=== PATIENT | male | born 1960 | race Hispanic/Latino ===

== ENCOUNTER 2018-02-22 09:52 | Emergency (ER) | payer OTHER, MEDICARE ==
[~2018-02-22 09:52] MED LIST: ASPI-1005 PO; ATOR20TA65 PO; CLOP75TA14 PO; ESOM40CA54 PO; LANS1COM10 PO; LISI10TA7 PO; METO50TA18 PO; OMEG1CAP43 PO
[2018-02-22] MEDS ORDERED: OXYMETAZOLINE HCL SPRAY 15 ML BOTTLE ONE (10:23)
== END 2018-02-22 11:09 | disposition home or self-care (01) ==
LOC: EDH 09:52
DX: R04.0 Epistaxis (principal); I10 Essential (primary) hypertension; I25.2 Old myocardial infarction; Z88.6 Allergy status to analgesic agent
CPT/HCPCS: 30901

== ENCOUNTER → 2018-06-14 | Outpatient (CLI) | payer OTHER, MEDICARE | END | disposition home or self-care (01) | LOC: SHCH 09:59 | PROVIDERS: ATTEND Internal Medicine Cardiovascular Disease | DX: I73.9 Peripheral vascular disease, unspecified (principal) | CPT/HCPCS: 93925 ==

== ENCOUNTER 2019-02-18 12:04 | Emergency (ER) | payer OTHER, MEDICARE ==
[2019-02-18 12:34] LABS: BASOPHILS % (AUTO) 0.8 % (0.0-5.0); HEMATOCRIT 41.9 % (42-54); LYMPHOCYTES % (AUTO) 25.8 % (21.0-51.0); MEAN CORPUSCULAR HEMOGLOBIN 29.9 pg (27.0-33.0); MEAN CORPUSCULAR HGB CONC 33.6 g/dL (32.0-36.0); MEAN CORPUSCULAR VOLUME 89.1 fL (79-99); MONOCYTES % (AUTO) 5.3 % (3.0-13.0); NEUTROPHILS % (AUTO) 64.1 % (40.0-77.0); NUCLEATED RED BLOOD CELLS 0.1 % (0.0-0.19); PLATELET COUNT (AUTO) 187 K/uL (130-400); RED CELL DISTRIBUTION WIDTH 12.7 % (11.0-15.5); WHITE BLOOD COUNT (AUTO) 6.8 K/uL (4.8-10.8)
[2019-02-18] MEDS ORDERED: ASPIRIN 325 MG TABLET ONE (12:40)
[2019-02-18 12:45] LABS: INR 1.02 (0.85-1.15); PARTIAL THROMBOPLASTIN TIME 25.2 SEC (26.3-35.5); PROTHROMBIN TIME 10.7 SEC (9.6-11.6)
[2019-02-18 13:13] LABS: ALBUMIN 3.8 g/dL (3.5-5.0); BILIRUBIN,TOTAL 0.4 mg/dL (0.2-1.0); CREATININE 0.8 mg/dL (0.5-1.5); POTASSIUM 4.5 mmol/L (3.5-5.1); TOTAL PROTEIN, SERUM 8.2 g/dL (6.0-8.3)
[2019-02-18] MEDS ORDERED: NITROGLYCERIN 1GM/1 INCH PACKET TD ONE (13:22)
== END 2019-02-18 16:26 | disposition home or self-care (01) ==
LOC: EDH 12:04
DX: R07.89 Other chest pain (principal); I10 Essential (primary) hypertension; I21.9 Acute myocardial infarction, unspecified; Z87.891 Personal history of nicotine dependence; Z88.8 Allergy status to other drugs, medicaments and biological substances
CPT/HCPCS: 36415; 71045; 80053; 82550; 84484; 85025; 85610; 85730; 93005

== ENCOUNTER → 2019-11-08 | Outpatient (CLI) | payer OTHER, MEDICARE | END | disposition home or self-care (01) | LOC: SHCH 14:31 | PROVIDERS: ATTEND Internal Medicine Cardiovascular Disease | DX: I65.22 Occlusion and stenosis of left carotid artery (principal) | CPT/HCPCS: 93880 ==

== ENCOUNTER 2021-04-18 12:42 | Emergency (ER) | payer OTHER, MEDICARE ==
[~2021-04-18] VITALS: Ht 167.6 cm; Wt 67.6 kg
[~2021-04-18 12:42] MED LIST changes: +LISI10TA24 PO; -LISI10TA7 PO
[2021-04-18 14:30] LABS: BASOPHILS % (AUTO) 0.4 % (0.0-5.0); EOSINOPHILS % (AUTO) 1.2 % (0.0-8.0); HEMATOCRIT 38.3 % (42-54); LYMPHOCYTES % (AUTO) 11.3 % (21.0-51.0); MEAN CORPUSCULAR HEMOGLOBIN 28.3 pg (27.0-33.0); MEAN CORPUSCULAR HGB CONC 31.6 g/dL (32.0-36.0); MEAN CORPUSCULAR VOLUME 89.5 fL (79-99); MONOCYTES % (AUTO) 6.2 % (3.0-13.0); NEUTROPHILS % (AUTO) 78.6 % (40.0-77.0); RED BLOOD CELL COUNT(AUTO) 4.28 MIL/uL (4.50-6.20); RED CELL DISTRIBUTION WIDTH 12.8 % (11.0-15.5); WHITE BLOOD COUNT (AUTO) 13.5 K/uL (4.8-10.8)
[2021-04-18 14:44] LABS: INR 1.13 (0.85-1.15); PROTHROMBIN TIME 12.2 SEC (9.6-11.6)
[2021-04-18 14:45] LABS: CREATININE 0.8 mg/dL (0.5-1.5); POTASSIUM 3.1 mmol/L (3.5-5.1)
[2021-04-18 14:46] LABS: PARTIAL THROMBOPLASTIN TIME 28.6 SEC (26.3-35.5)
[2021-04-18] MEDS ORDERED: MORPHINE 4 MG SYG IV ONE (14:47)
[2021-04-18 14:48] LABS: PLATELET COUNT (AUTO) 746 K/uL (130-400)
[2021-04-18 14:50] LABS: ALBUMIN 2.5 g/dL (3.5-5.0); BILIRUBIN,TOTAL 0.8 mg/dL (0.2-1.0); TOTAL PROTEIN, SERUM 8.1 g/dL (6.0-8.3)
[2021-04-18] MEDS ORDERED: IOHEXOL-350 75 ML VIAL IV ONE (16:02)
[2021-04-18] MEDS ORDERED: LIDOCAINE HCL 400MG/20ML VIAL ONE (16:38)
[2021-04-18] MEDS ORDERED: CLINDAMYCIN IVPB 900MG/50ML 50 ML IV SCH (17:00)
[2021-04-18] MEDS ORDERED: KETOROLAC 30MG VIAL (30MG/ML) IV SCH (17:00)
[2021-04-18] MEDS ORDERED: MORPHINE 4 MG SYG ONE (17:09)
[2021-04-18] MEDS ORDERED: CLIN-141 PO (17:20)
[2021-04-18] MEDS ORDERED: ACET1TAB25 PO (17:20)
[2021-04-18] MEDS ORDERED: IBUP-2070 PO (17:20)
[2021-04-18 17:30] VITALS: BP 138/68
[2021-04-18] MEDS ORDERED: LIDOCAINE HCL 1% 20 ML VIAL INJ SCH (17:40)
== END 2021-04-18 18:01 | disposition home or self-care (01) ==
LOC: EDH 12:42
DX: L02.31 Cutaneous abscess of buttock (principal); I10 Essential (primary) hypertension; Z79.1 Long term (current) use of non-steroidal anti-inflammatories (NSAID); Z79.82 Long term (current) use of aspirin; Z79.899 Other long term (current) drug therapy; Z90.49 Acquired absence of other specified parts of digestive tract
CPT/HCPCS: 10061; 36415; 72193; 80053; 83605; 85025; 85610; 85730; 87040 ×2; 87070; 87076; 96365; 96375; 99285; J1885; J2270; J3490 ×2; Q9967

== ENCOUNTER 2021-04-19 17:56 | Emergency (ER) | payer OTHER, MEDICARE ==
[~2021-04-19 17:56] MED LIST changes: +ACET1TAB25 PO; +CLIN-141 PO; +IBUP-2070 PO
== END 2021-04-19 18:25 | disposition left against medical advice (07) ==
LOC: EDH 17:56
DX: Z48.00 Encounter for change or removal of nonsurgical wound dressing (principal); Z53.21 Procedure and treatment not carried out due to patient leaving prior to being seen by health care provider

== ENCOUNTER → 2021-06-02 | Outpatient (CLI) | payer OTHER, MEDICARE ==
[2021-06-02 09:15] LABS: BASOPHILS % (AUTO) 1.9 % (0.0-5.0); EOSINOPHILS % (AUTO) 7.1 % (0.0-8.0); HEMATOCRIT 43.6 % (42-54); LYMPHOCYTES % (AUTO) 26.6 % (21.0-51.0); MEAN CORPUSCULAR HEMOGLOBIN 29.1 pg (27.0-33.0); MEAN CORPUSCULAR HGB CONC 32.3 g/dL (32.0-36.0); MEAN CORPUSCULAR VOLUME 89.9 fL (79-99); MONOCYTES % (AUTO) 7.1 % (3.0-13.0); NEUTROPHILS % (AUTO) 55.5 % (40.0-77.0); PLATELET COUNT (AUTO) 290 K/uL (130-400); RED BLOOD CELL COUNT(AUTO) 4.85 MIL/uL (4.50-6.20); RED CELL DISTRIBUTION WIDTH 13.2 % (11.0-15.5); WHITE BLOOD COUNT (AUTO) 7.9 K/uL (4.8-10.8)
[2021-06-02 09:35] LABS: ALBUMIN 3.7 g/dL (3.5-5.0); BILIRUBIN,TOTAL 0.5 mg/dL (0.2-1.0); CREATININE 0.6 mg/dL (0.5-1.5); INR 1.03 (0.85-1.15); POTASSIUM 4.1 mmol/L (3.5-5.1); PROTHROMBIN TIME 11.2 SEC (9.6-11.6); TOTAL PROTEIN, SERUM 8.5 g/dL (6.0-8.3)
[2021-06-02 18:49] LABS: HEPATITIS B SURFACE ANTIGEN Non-Reactive (Negative)
[2021-06-02 21:47] LABS: HEPATITIS C ANTIBODY Non-Reactive (NEGATIVE)
[2021-06-03 08:18] LABS: HEPATITIS A ANTIBODY IGM Negative (Negative)
[2021-06-04 03:09] LABS: ALPHA-1-ANTITRYPSIN 149 mg/dL (101-187)
== END | disposition home or self-care (01) ==
LOC: RAH 08:00
PROVIDERS: ATTEND Internal Medicine Gastroenterology
DX: K76.89 Other specified diseases of liver (principal); I70.0 Atherosclerosis of aorta; R94.5 Abnormal results of liver function studies; R93.2 Abnormal findings on diagnostic imaging of liver and biliary tract
CPT/HCPCS: 36415; 76700; 80053; 82103; 82105; 82390; 82784; 83516; 83540; 85025; 85610; 86038; 86215; 86235; 86255; 86706; 86709; 86717; 87340; 87520

== ENCOUNTER 2022-01-09 10:21 | Emergency (ER) | payer OTHER, MEDICARE ==
[~2022-01-09] VITALS: Ht 165.1 cm; Wt 70.8 kg
[~2022-01-09 10:21] MED LIST changes: +ACET-2079 PO; -ACET1TAB25 PO
[2022-01-09 11:17] LABS: EOSINOPHILS % (AUTO) 4.7 % (0.0-8.0); HEMATOCRIT 43.5 % (42-54); LYMPHOCYTES % (AUTO) 24.9 % (21.0-51.0); MEAN CORPUSCULAR HEMOGLOBIN 29.6 pg (27.0-33.0); MEAN CORPUSCULAR HGB CONC 33.8 g/dL (32.0-36.0); MEAN CORPUSCULAR VOLUME 87.7 fL (79-99); MONOCYTES % (AUTO) 5.9 % (3.0-13.0); NEUTROPHILS % (AUTO) 60.7 % (40.0-77.0); PLATELET COUNT (AUTO) 288 K/uL (130-400); RED BLOOD CELL COUNT(AUTO) 4.96 MIL/uL (4.50-6.20); RED CELL DISTRIBUTION WIDTH 11.9 % (11.0-15.5); WHITE BLOOD COUNT (AUTO) 7.1 K/uL (4.8-10.8)
[2022-01-09 11:28] LABS: CREATININE 0.8 mg/dL (0.5-1.5); POTASSIUM 4.1 mmol/L (3.5-5.1)
[2022-01-09 11:32] LABS: ALBUMIN 3.7 g/dL (3.5-5.0); TOTAL PROTEIN, SERUM 8.2 g/dL (6.0-8.3)
[2022-01-09 12:36] LABS: ERYTHROCYTE SEDIMENTATION RATE 18 MM/HR (0-20)
[2022-01-09] MEDS ORDERED: IBUP-1493 PO (13:20)
[2022-01-09 13:32] VITALS: BP 104/57
== END 2022-01-09 13:33 | disposition home or self-care (01) ==
LOC: EDH 10:21
DX: M79.10 Myalgia, unspecified site (principal); M79.651 Pain in right thigh; M79.652 Pain in left thigh; E78.00 Pure hypercholesterolemia, unspecified; I10 Essential (primary) hypertension; I25.2 Old myocardial infarction; Z90.89 Acquired absence of other organs; Z79.82 Long term (current) use of aspirin; Z79.899 Other long term (current) drug therapy; Z88.6 Allergy status to analgesic agent; Z88.5 Allergy status to narcotic agent
CPT/HCPCS: 36415; 80053; 82550; 85025; 85651

== ENCOUNTER → 2022-02-24 | Outpatient (CLI) | payer OTHER, MEDICARE ==
[~2022-02-24] MED LIST changes: +CLOP-31 PO; -CLOP75TA14 PO; +FISH1CAP17 PO; +IBUP-1493 PO; -OMEG1CAP43 PO
== END | disposition home or self-care (01) ==
LOC: RAH 13:34
PROVIDERS: ATTEND Internal Medicine Cardiovascular Disease
DX: I65.23 Occlusion and stenosis of bilateral carotid arteries (principal); I77.9 Disorder of arteries and arterioles, unspecified
CPT/HCPCS: 93880

== ENCOUNTER → 2022-08-01 | Outpatient (CLI) | payer OTHER, MEDICARE ==
[2022-08-01 11:57] LABS: BASOPHILS % (AUTO) 1.3 % (0.0-5.0); EOSINOPHILS % (AUTO) 4.5 % (0.0-8.0); HEMATOCRIT 44.2 % (42-54); LYMPHOCYTES % (AUTO) 23.6 % (21.0-51.0); MEAN CORPUSCULAR HEMOGLOBIN 29.4 pg (27.0-33.0); MEAN CORPUSCULAR VOLUME 89.1 fL (79-99); MONOCYTES % (AUTO) 8.2 % (3.0-13.0); NEUTROPHILS % (AUTO) 59.7 % (40.0-77.0); PLATELET COUNT (AUTO) 263 K/uL (130-400); RED BLOOD CELL COUNT(AUTO) 4.96 MIL/uL (4.50-6.20); WHITE BLOOD COUNT (AUTO) 8.4 K/uL (4.8-10.8)
[2022-08-01 12:23] LABS: HEMOGLOBIN A1C 5.7 % (4.0-6.0)
[2022-08-01 12:25] LABS: ALBUMIN 3.7 g/dL (3.5-5.0); CREATININE 0.8 mg/dL (0.5-1.5); POTASSIUM 4.3 mmol/L (3.5-5.1); T4 (THYROXINE) 6.7 ug/dL (4.7-13.3); THYROID STIMULATING HORMONE 4.84 uIU/mL (0.36-3.74)
== END | disposition home or self-care (01) ==
LOC: LAB 08:50
PROVIDERS: ATTEND Internal Medicine Cardiovascular Disease
DX: I25.119 Atherosclerotic heart disease of native coronary artery with unspecified angina pectoris (principal); I10 Essential (primary) hypertension; E78.5 Hyperlipidemia, unspecified; Z79.899 Other long term (current) drug therapy
CPT/HCPCS: 36415; 80053; 80061; 83036; 84436; 84443; 85025

== ENCOUNTER → 2022-09-02 | Outpatient (CLI) | payer OTHER, MEDICARE | END | disposition home or self-care (01) | LOC: SHCH 13:55 | PROVIDERS: ATTEND Internal Medicine Cardiovascular Disease | DX: I70.213 Atherosclerosis of native arteries of extremities with intermittent claudication, bilateral legs (principal); M62.81 Muscle weakness (generalized) | CPT/HCPCS: 93925 ==

== ENCOUNTER → 2022-09-26 | Outpatient (CLI) | payer OTHER, MEDICARE ==
[2022-09-26 12:25] LABS: CREATININE 0.8 mg/dL (0.5-1.5)
== END | disposition home or self-care (01) ==
LOC: LAB 08:53
PROVIDERS: ATTEND Internal Medicine Cardiovascular Disease
DX: I73.9 Peripheral vascular disease, unspecified (principal); Z95.5 Presence of coronary angioplasty implant and graft
CPT/HCPCS: 36415; 82565; 84520

== ENCOUNTER → 2022-10-04 | Outpatient (CLI) | payer OTHER, MEDICARE ==
[~2022-10-04] MED LIST changes: +IOHEXOL-350 50ML VIAL IV ONE; +IOHEXOL-350 75 ML VIAL IV ONE
== END | disposition home or self-care (01) ==
LOC: RAH 08:37 → EDSTATUS 11:00
PROVIDERS: ATTEND Internal Medicine Cardiovascular Disease
DX: I73.9 Peripheral vascular disease, unspecified (principal); N28.1 Cyst of kidney, acquired
CPT/HCPCS: 75635; Q9967 ×2

== ENCOUNTER → 2022-12-05 | Outpatient (CLI) | payer OTHER, MEDICARE ==
[~2022-12-05] MED LIST changes: -IOHEXOL-350 50ML VIAL IV ONE; -IOHEXOL-350 75 ML VIAL IV ONE
== END | disposition home or self-care (01) ==
LOC: SHCH 09:53
PROVIDERS: ATTEND Internal Medicine Cardiovascular Disease
DX: I87.2 Venous insufficiency (chronic) (peripheral) (principal); I87.1 Compression of vein
CPT/HCPCS: 93970

== ENCOUNTER → 2023-05-19 | Outpatient (CLI) | payer OTHER, MEDICARE | END | disposition home or self-care (01) | LOC: RAH 08:15 | PROVIDERS: ATTEND Family Medicine | DX: N28.1 Cyst of kidney, acquired (principal); R10.9 Unspecified abdominal pain | CPT/HCPCS: 76700 ==

== ENCOUNTER → 2023-05-30 | Outpatient (CLI) | payer OTHER, MEDICARE ==
[2023-05-30 12:11] LABS: BASOPHILS # (AUTO) 0.12 K/uL (0.00-0.20); BASOPHILS % (AUTO) 1.4 % (0.0-5.0); EOSINOPHILS # (AUTO) 0.32 K/uL (0.00-0.70); EOSINOPHILS % (AUTO) 3.7 % (0.0-8.0); HEMATOCRIT 44.2 % (42-54); LYMPHOCYTES # (AUTO) 1.8 K/uL (1.0-4.8); LYMPHOCYTES % (AUTO) 20.7 % (21.0-51.0); MEAN CORPUSCULAR HGB CONC 32.6 g/dL (32.0-36.0); MEAN CORPUSCULAR VOLUME 88.9 fL (79-99); MONOCYTES # (AUTO) 0.6 K/uL (0.1-1.0); MONOCYTES % (AUTO) 7.1 % (3.0-13.0); NEUTROPHILS # (AUTO) 5.7 K/uL (1.8-7.7); NEUTROPHILS % (AUTO) 65.9 % (40.0-77.0); PLATELET COUNT (AUTO) 277 K/uL (130-400); RED BLOOD CELL COUNT(AUTO) 4.97 MIL/uL (4.50-6.20); RED CELL DISTRIBUTION WIDTH 12.8 % (11.0-15.5); WHITE BLOOD COUNT (AUTO) 8.6 K/uL (4.8-10.8)
[2023-05-30 12:12] LABS: CREATININE 0.8 mg/dL (0.5-1.5); POTASSIUM 4.5 mmol/L (3.5-5.1)
[2023-05-30 12:16] LABS: INR 0.94 (0.85-1.15); PROTHROMBIN TIME 10.9 SEC (9.6-11.6)
[2023-05-30 12:18] LABS: PARTIAL THROMBOPLASTIN TIME 34.8 SEC (26.3-35.5)
== END | disposition home or self-care (01) ==
LOC: LAB 08:36
PROVIDERS: ATTEND Internal Medicine Cardiovascular Disease
DX: Z01.812 Encounter for preprocedural laboratory examination (principal); I87.1 Compression of vein; I10 Essential (primary) hypertension; I87.2 Venous insufficiency (chronic) (peripheral); I73.9 Peripheral vascular disease, unspecified; I25.10 Atherosclerotic heart disease of native coronary artery without angina pectoris; I77.9 Disorder of arteries and arterioles, unspecified; E78.5 Hyperlipidemia, unspecified; Z95.5 Presence of coronary angioplasty implant and graft; M25.561 Pain in right knee; R20.0 Anesthesia of skin; Z79.899 Other long term (current) drug therapy; J44.9 Chronic obstructive pulmonary disease, unspecified; Z82.49 Family history of ischemic heart disease and other diseases of the circulatory system; M25.562 Pain in left knee; Z79.82 Long term (current) use of aspirin; Z79.01 Long term (current) use of anticoagulants
CPT/HCPCS: 36415; 80048; 85025; 85610; 85730

== ENCOUNTER 2024-05-28 05:43 | Day surgery (SDC) | payer OTHER, MEDICARE ==
[2024-05-23 09:53] LABS: APPEARANCE,URINE CLEAR (CLEAR); BILIRUBIN,URINE NEGATIVE (NEGATIVE); COLOR,URINE LIGHT-YELLOW (YELLOW); GLUCOSE, URINE (UA) NEGATIVE (NEGATIVE); KETONES,URINE NEGATIVE (NEGATIVE); LEUKOCYTE ESTERASE ,URINE NEGATIVE Leu/uL (NEGATIVE); NITRATE,URINE NEGATIVE (NEGATIVE); OCCULT BLOOD,URINE SMALL (NEGATIVE); PH,URINE 5.5 (5.0-8.0); PROTEIN,URINE 20 mg/dL (NEGATIVE); UROBILINOGEN,URINE 0.2 mg/dL (0.2-1.0)
[2024-05-23 09:55] LABS: ADD UA MICROSCOPIC YES
[2024-05-23 09:56] VITALS: BP 150/62; PULSE 72; RESP 18; TEMP 97.3
[2024-05-23 09:56] LABS: MUCUS,URINE RARE LPF (None Seen); WBC,URINE 0-1 /HPF (0-1)
[2024-05-23 10:14] LABS: BASOPHILS # (AUTO) 0.13 K/uL (0.00-0.20); BASOPHILS % (AUTO) 1.3 % (0.0-5.0); EOSINOPHILS # (AUTO) 0.32 K/uL (0.00-0.70); EOSINOPHILS % (AUTO) 3.3 % (0.0-8.0); HEMATOCRIT 43.4 % (42-54); IMMATURE GRANULOCYTE ABSOLUTE 0.18 K/uL (0-1); LYMPHOCYTES # (AUTO) 1.8 K/uL (1.0-4.8); MEAN CORPUSCULAR HEMOGLOBIN 28.6 pg (27.0-33.0); MEAN CORPUSCULAR HGB CONC 32.3 g/dL (32.0-36.0); MEAN CORPUSCULAR VOLUME 88.6 fL (79-99); MONOCYTES # (AUTO) 0.6 K/uL (0.1-1.0); MONOCYTES % (AUTO) 6.3 % (3.0-13.0); NEUTROPHILS # (AUTO) 6.6 K/uL (1.8-7.7); NEUTROPHILS % (AUTO) 68.2 % (40.0-77.0); PLATELET COUNT (AUTO) 265 K/uL (130-400); RED CELL DISTRIBUTION WIDTH 12.2 % (11.0-15.5); WHITE BLOOD COUNT (AUTO) 9.7 K/uL (4.8-10.8)
[2024-05-23 10:17] LABS: CREATININE 0.9 mg/dL (0.5-1.3); POTASSIUM 4.3 mmol/L (3.5-5.1)
[2024-05-23 10:22] LABS: INR 1.08 (0.85-1.15); PROTHROMBIN TIME 11.4 SEC (9.6-11.6)
[2024-05-23 10:23] LABS: PARTIAL THROMBOPLASTIN TIME 35.6 SEC (26.3-35.5)
[2024-05-23 10:39] LABS: B-TYPE NATRIURETIC PEPTIDE 13 pg/mL (0-100)
--- NOTE | 2024-05-23 16:19 | HMCIMG ---
CHEST 1VW HISTORY: Preop COMPARISON: 01/17/2024 FINDINGS: A frontal projection of the chest was obtained. No acute pulmonary infiltrates is seen. The heart is borderline enlarged. Prominent interstitial markings are seen. There is grade 2 right acromioclavicular joint separation. Aortic calcifications are seen. IMPRESSION: 1. No acute pulmonary infiltrate is seen.
--- NOTE | 2024-05-24 09:33 | EKG ---
[facility] Test Date: 2024-05-23 Test Time: 10:42:59 Pat Name: DIANDRA SOLER Department: [facility] Room: Gender: M Director Work: [id number] : 1960 Requested By: CHRIS GILBERT Order Number: [id number] Reading MD: Vidal Reyes Measurements Intervals [place] Rate: 66 P: 47 CT: 177 QRS: 63 QRSD: 98 T: 29 QT: 404 QTc: 424 Interpretive Statements Sinus rhythm Inferior infarct, old Compared to ECG 01/17/2024 12:16:54 No significant changes Electronically Signed On 05-24-2024 14:47:18 MIXER OPERATOR by Vidal Reyes Please click the below link to view image of tracing.
[~2024-05-28] VITALS: Ht 167.6 cm; Wt 74.9 kg
[2024-05-28] VITALS (10 sets, daily range): BP systolic 125–153; BP diastolic 68–86; PULSE 70–94; RESP 11–22; TEMP 97.2–98.2
[~2024-05-28 05:43] MED LIST changes: -ACET-2079 PO; -ATOR20TA65 PO; +ATOR40TA69 PO; +CALC-1294 PO; -CLIN-141 PO; -ESOM40CA54 PO; +EZET10TA48 PO; +HYDR-4068 PO; -IBUP-1493 PO; -IBUP-2070 PO; -LANS1COM10 PO; +LEVO50CA4 PO; +METO-391 PO; -METO50TA18 PO; +PANT40TA54 PO
[2024-05-28] MEDS: 0.9%NACL 1000ML 1,000 ML IV SCH (06:41)
[2024-05-28] MEDS ORDERED: LIDOCAINE HCL 400MG/20ML VIAL ONE (07:15)
[2024-05-28] MEDS ORDERED: BIVALIRUDIN 250 MG/VIAL IV ONE (07:16)
[2024-05-28] MEDS ORDERED: HEParin 10,000 UNIT/10ML (1,000 UNIT/ML) VIAL ONE (07:16)
[2024-05-28] MEDS ORDERED: IOHEXOL 350 MG/ML 100ML INFUS..BTL IV ONE (07:16)
[2024-05-28] MEDS ORDERED: IOHEXOL-350 50ML VIAL IV ONE (07:16)
[2024-05-28] MEDS ORDERED: HEParin-NS 1,000 UNIT/500 ML 1,000 ML IV ONE (07:16)
[2024-05-28] MEDS ORDERED: NITROGLYCERIN 50MG VIAL ONE (07:17)
[2024-05-28] MEDS ORDERED: MIDAZOLAM HCL 1 MG/ML 2ML VIAL ONE (07:33)
[2024-05-28] MEDS ORDERED: FENTanyl CITRate PF 50 MCG/1 ML 2ML VIAL ONE (07:33)
[2024-05-28] MEDS ORDERED: LAbetaLOL 20MG VIAL ONE (07:57)
[2024-05-28] MEDS ORDERED: ATROPINE 1MG SYG IVP ONE (08:20)
--- NOTE | 2024-05-28 09:27 | PRN ---
DATE OF PROCEDURE: 05/28/2024 PROCEDURE PERFORMED: LEFT HEART CATHETERIZATION, LEFT VENTRICULOGRAM, LEFT AND RIGHT SELECTIVE CORONARY ANGIOGRAM, LEFT INTERNAL MAMMARY ARTERY INJECTION, RIGHT COMMON FEMORAL ANGIOGRAM, PERCLOSE SUTURE CLOSURE OF THE RIGHT COMMON FEMORAL ARTERY, AND CONSCIOUS SEDATION DRILL PRESS OPERATOR HELPER: Jairo Gilbert MD, [facility] INDICATION: Medically refractory angina pectoris, known three-vessel coronary artery disease PROCEDURE NOTE: After informed consent was obtained the patient was prepped and draped in the usual sterile fashion. A 6 [place] arterial sheath was inserted in the right femoral artery using a micropuncture technique with ultrasound guidance with a front wall 1st pass puncture. This was performed after fluoroscopic identification of bony landmarks to facilitate a more accurate puncture of the right common femoral artery. The arterial sheath was aspirated and flushed. A 6 [place] pigtail catheter was then advanced over a J-tipped guidewire to the ascending aorta and was prolapsed into the left ventricle. The catheter was aspirated and flushed and pressure measurements were obtained. A left ventriculogram was then performed in a 30 HOBBS projection. A pullback procedure was then performed, and this catheter was removed over a J-tipped guidewire. A 6F JL-4 was then advanced to the ascending aorta over a J-tipped guidewire, was aspirated and flushed, and was used for selective left coronary angiograms in multiple obliquities. A JR-4 was advanced in a similar fashion to the ascending aorta over a J-tipped guidewire and was used for selective right coronary angiograms in multiple obliquities with findings as outlined below. The six [place] JR4 was then used for selective injection of the left internal mammary artery to assess suitability for use as a bypass conduit. A right common femoral angiogram was performed to assess suitability for Perclose suture closure and the Perclose device was deployed in standard fashion. Perclose suture closure was successful without bleeding or hematoma. The patient tolerated the procedure well and was returned to the holding area in stable condition. FINDINGS: LEFT HEART HEMODYNAMICS: Patient's LVEDP prior to nitroglycerin was 31 mm of mercury, after intraventricular nitroglycerin this improved to 21 mm of mercury. There was no aortic valve gradient on pullback procedure. LEFT VENTRICULOGRAM: A left ventriculogram in a 30 degree HOBBS projection demonstrated mild mid inferior hypokinesis with an LVEF of 60%. There was no angiographic MR. CORONARY ANGIOGRAM: LEFT MAIN: The left main had a 40% ostial stenosis and a 30% tubular distal stenosis. There was no dampening or ventricularization with a six [place] catheter. LEFT ANTERIOR DESCENDING: The left anterior descending was calcified proximally with a 50% tubular stenosis in the prox LAD, 90% mid LAD stenosis, and the mid to distal LAD was small, estimated at 1.5 mm. This was due to the fact that the diagonal two was a larger vessel than the apical LAD. The diagonal one had a 70% ostial stenosis in the diagonal two also a 70% ostial stenosis. LEFT CIRCUMFLEX: The left circumflex was nondominant and had a remote stent in the proximal to mid segment traversing the 1st obtuse marginal. There was a 90% distal edge restenosis just prior to a small OM2 vessel. The distal circumflex had a tubular 60% stenosis and terminated as a large OM3 vessel. The OM1 had a 90% stenosis and was jailed by the remote stent from 11/11/2009. RAMUS INTERMEDIATE BRANCH: There was no ramus intermediate branch. RIGHT CORONARY ARTERY: The right coronary artery was dominant and had an 80% proximal stenosis, two tandem 50% mid stenoses, and two tandem 75% proximal PDA stenoses. The acute marginal branch also had an 80% ostial stenosis. IMPRESSION: Normal LV systolic function with mild mid inferior hypokinesis and an LVEF of 60%. Widely patent right iliac stent from 06/28/2011. No aortic stenosis. No mitral regurgitation. Severe three-vessel coronary artery disease with a 40% ostial left main involvement: -90% mid LAD stenosis, 90% mid left circumflex stenosis, and 80% proximal RCA stenosis RECOMMENDATION: Coronary artery bypass grafting. The left internal mammary artery was injected in his suitable for use as a bypass conduit. COMPLICATIONS OF PROCEDURE: None, the patient tolerated the procedure well and was returned to his room in stable condition. HEMOSTASIS: Perclose suture closure was successful without bleeding or hematoma. ESTIMATED BLOOD LOSS: Less than 10 mL. CONTRAST TOTAL: 175 mL. JAIRO GILBERT MD May 28, 2024 09:27
--- NOTE | 2024-05-28 09:50 | NUR ---
URINARY: PT VOIDED 350CC CLEAR DARK YELLOW URINE PER URINAL WITHOUT DIFFICULTY
--- NOTE | 2024-05-28 12:05 | NUR ---
KNOWLEDGE DEFICIT: PATIENT REFUSING FOR DISCHARGE INSTRUCTIONS TO BE GIVEN TO FRIEND/FAMILY.
--- NOTE | 2024-05-28 20:50 | CONS ---
PREOPERATIVE EVALUATION REFERRING PHYSICIAN: Jairo Terrazas MD CONSULTING PHYSICIAN: Brice Rosales MD REASON FOR CONSULTATION: Angina, stable with multivessel disease. HISTORY: This is a gentleman, patient of Dr. Terrazas, who has got multiple vessel coronary artery disease, referred for surgical revascularization. I had the opportunity to review the films and discussed the case with Dr. Terrazas. We both agree surgery is indicated and we have recommended. I have also discussed with the patient indications for surgery as well as the potential complications of the operation including but not limited to postoperative bleeding, infection, stroke and/or . He understands this as well as associated morbidity and mortality procedures related to his own comorbidities and wishes to proceed with surgery. Plan for surgery in a week or two. TID: [id number] RECEIPT: [id number]
== END 2024-05-28 12:35 | disposition home or self-care (01) ==
LOC: DAH 05:43
PROVIDERS: ATTEND Internal Medicine Cardiovascular Disease
DX: I25.112 Atherosclerotic heart disease of native coronary artery with refractory angina pectoris (principal); R06.09 Other forms of dyspnea; I25.84 Coronary atherosclerosis due to calcified coronary lesion; I73.9 Peripheral vascular disease, unspecified; E78.2 Mixed hyperlipidemia; I87.1 Compression of vein; I10 Essential (primary) hypertension; I65.22 Occlusion and stenosis of left carotid artery; E66.9 Obesity, unspecified; Z79.899 Other long term (current) drug therapy; Z79.82 Long term (current) use of aspirin; Z79.84 Long term (current) use of oral hypoglycemic drugs; Z79.01 Long term (current) use of anticoagulants; Z90.49 Acquired absence of other specified parts of digestive tract; Z98.890 Other specified postprocedural states; Z68.26 Body mass index [BMI] 26.0-26.9, adult; Z87.891 Personal history of nicotine dependence; Z95.820 Peripheral vascular angioplasty status with implants and grafts
CPT/HCPCS: 80048; 83880; 85025; 85610; 85730; 81001; 36415; 71045; 93005; 93458; C1894 ×2; C1760; Q9965 ×2; J3010; J3490 ×3; J7030; J2250; J1644; Q9967 ×2; A4215; A4222; A4221; A4663; A4216; A4606; A4223 ×3; 99156; 99157; J0461; J0583

== ENCOUNTER 2024-10-17 11:20 | Emergency (ER) | payer OTHER, MEDICARE ==
[~2024-10-17] VITALS: Ht 167.6 cm; Wt 68.5 kg
[~2024-10-17 11:20] MED LIST changes: -CLOP-31 PO; +CLOP75TA32 PO; -FISH1CAP17 PO; +FURO20TA4 PO; +ISOS60TA77 PO; -LEVO50CA4 PO; +LEVO50CA5 PO; -LISI10TA24 PO; -METO-391 PO; +METO25TA6 PO; +OMEG-13 PO
--- NOTE | 2024-10-17 11:45 | ERN ---
General Chief Complaint: Chest Pain Stated Complaint: CHEST PAIN X2 DAYS Time Seen by MD: 11:23 Source: patient History of Present Illness Initial Comments Mr. Vargas is a 64-year-old male who presented to the emergency department with upper back pain and paresthesias that wrap along the chest wall. Patient states that on Monday he started having pain in his fingers that expanded to involve his arms which he describes it as a pulling kind of pain. He states it yesterday night he started having mid sternum which radiates to his back. He said he used an ointment that he got from [place] to relieve the pain which he states has helped a little. He has also been using hydrocodone as needed for the pain since the surgery. Patient recently had a CABG done by Dr. Rosales. He has a past medical history of hypothyroidism, hypertension, coronary artery disease, and hyperlipidemia. In the emergency department his vitals look stable. Allergies: Coded Allergies: codeine (Unverified Allergy, Unknown, 05/23/24) diphenhydramine (Unverified Allergy, Unknown, 01/09/22) Home Meds Reported Medications Furosemide (Furosemide) 20 Mg Tablet, 1 TAB PO DAILY for 30 Days, #30 TAB 0 Refills 07/30/24 Metoprolol Tartrate (Metoprolol Tartrate) 25 Mg Tablet, 1 TAB PO BID for 30 Days, #60 TAB 0 Refills 07/30/24 Clopidogrel Bisulfate (Clopidogrel) 75 Mg Tablet, 75 MG PO AM, TAB 07/19/24 Isosorbide Mononitrate (Isosorbide Mononitrate ER) 60 Mg Tab.er.24h, 60 MG PO AM, TAB 07/19/24 Hydrocodone/Acetaminophen (Hydrocodon-Acetaminophn 10-325) 10 Mg-325 Mg Tablet, 1 EACH PO BID PRN for PAIN, TAB 05/23/24 Calcium Carbonate/Vitamin D3 (Calcium 600 mg-D3 20 Mcg Cplt) 600 Mg Calcium-20 Mcg (800 Unit) Tablet, 1 EACH PO DAILY, TAB 05/23/24 Ezetimibe (Ezetimibe) 10 Mg Tablet, 10 MG PO DAILY, TAB 05/23/24 Levothyroxine Sodium (Levothyroxine) 50 Mcg Capsule, 50 MCG PO ACBKFST, CAP 05/23/24 Pantoprazole Sodium (Pantoprazole Sodium) 40 Mg Tablet., 40 MG PO DAILY, TAB 05/23/24 Atorvastatin Calcium (LIPITOR) 40 Mg Tablet, 40 MG PO DAILY, TAB 05/23/24 [place]-3 Fatty Acids/Fish Oil (Fish Oil 1,000 mg Softgel) 300 Mg-1,000 Mg Capsule, 1 EACH PO DAILY, CAP 04/10/16 Aspirin (ASPIRIN 81MG CHEW TAB) 81 Mg Tab.chew, 81 MG PO DAILY, TAB.CHEW 04/10/16 Past Medical History Past Medical History: High Cholesterol, Hypertension, [place] Medical History Other: HX OF [place] Past Surgical History: CABG, Other Surgical History Other: CARDIAC STENTS Family History Family History: DM, HTN Social History Social History: Smokers, ETOH, Lives with family ROS Dictation ROS Dictation CONSTITUTIONAL: No chills, no fever, no weakness, no diaphoresis, no malaise. HEAD/FACE: No signs of trauma. EENT: No eye pain, no blurred vision, no tearing, no double vision, no ear pain, no ear discharge, no nose pain, no nasal congestion, no throat pain, no throat swelling, no mouth pain. RESPIRATORY: No cough, no orthopnea, no SOB, no stridor, no wheezing. CARDIOVASCULAR: chest pain that radiates to his back, no edema, no palpitations, no syncope. GASTROINTESTINAL/ABDOMINAL: No abdominal pain, no constipation, no diarrhea, no nausea, no vomiting. GENITOURINARY: No abnormal discharge, no dysuria, no frequent urination, no hematuria. No complaints of pain in the genitals. MUSCULOSKELETAL: No back pain, no gout, no joint pain, no joint swelling, no muscle pain, no muscle stiffness, no neck pain. INTEGUMENTARY: No change in color, no change in hair/nails, no dryness, no lesion, no lumps, no rash. NEUROLOGICAL/PSYCH: No anxiety, not depressed, no emotional problem, no headache, pinprick sensations in the chest, no numbness, no pre-existing deficit, no history of seizures, no tremors, no weakness. HEMATOLOGIC/LYMPHATIC: Not anemic, no history of blood clots, no apparent bleed ing, no bruising, glands not swollen. All Systems Negative, Except as Noted. Physical Exam Physical Exam Dictation Physical Exam Dictation VITAL SIGNS: Reviewed. GENERAL APPEARANCE: Alert, oriented x3 HEAD AND FACE: Non-traumatic. EYES: PERRL, pink conjunctivas, eyelid no trauma, anterior chamber clear. EARS: Pinnas intact and no signs of trauma or erythema. Ear canals clear and no discharge. TMs no erythema. NOSE: No discharge, no bleeding. OROPHARYNX: Mouth normal, teeth no caries, tongue pink. Pharynx clear, no erythema. Tonsils no exudates, no abscesses noted. Mucous membrane moist. NECK: Supple, non-tender, no thyromegaly, no masses, no JVD, no bruits. BREAST: Deferred. CHEST: No tenderness, no crepitus, no paradoxical movement, no retractions. LUNGS: Clear, well-ventilated, symmetric, no rales, no wheezing, no rhonchi, no stridor, good breath sounds bilaterally. HEART: Regular rate, regular rhythm, no murmur, no gallops. VASCULAR: No peripheral edema. ABDOMEN: Soft, positive bowel sounds, nondistended, no guarding, nontender, no rebound, no masses no hepatomegaly, no splenomegaly, no Ureña's sign, no hernias. RECTAL: Deferred. GENITAL: Deferred. NEUROLOGICAL: Normal speech, gross motor function intact, gross sensory function intact. MUSCULOSKELETAL: Neck nontender, full range of motion, back nontender, full range of motion. EXTREMITIES: Nontender, full range of motion. SKIN: Color pink, dry, no turgor, no rash, no lacerations, no abrasions, no contusions. LYMPHATICS: Deferred. Results Laboratory and Microbiology Lab and Micro Result Laboratory Tests Test 10/17/24 11:46 10/17/24 11:49 10/17/24 12:38 White Blood Count 10.3 K/uL (4.8-10.8) Red Blood Count 5.50 MIL/uL (4.50-6.20) Hemoglobin 14.0 g/dL (14.0-18.0) Hematocrit 45.2 % (42-54) Mean Corpuscular Volume 82.2 fL (79-99) Mean Corpuscular Hemoglobin 25.5 pg (27.0-33.0) L Mean Corpuscular Hemoglobin Concent 31.0 g/dL (32.0-36.0) L Red Cell Distribution Width 13.9 % (11.0-15.5) Platelet Count 382 K/uL (130-400) Mean Platelet Volume 11.0 fL (7.5-10.5) H Immature Granulocyte % (Auto) 1.2 % (0-1) H Neutrophils (%) (Auto) 64.6 % (40.0-77.0) Lymphocytes (%) (Auto) 22.1 % (21.0-51.0) Monocytes (%) (Auto) 6.7 % (3.0-13.0) Eosinophils (%) (Auto) 4.0 % (0.0-8.0) Basophils (%) (Auto) 1.4 % (0.0-5.0) Neutrophils # (Auto) 6.7 K/uL (1.8-7.7) Lymphocytes # (Auto) 2.3 K/uL (1.0-4.8) Monocytes # (Auto) 0.7 K/uL (0.1-1.0) Eosinophils # (Auto) 0.41 K/uL (0.00-0.70) Basophils # (Auto) 0.14 K/uL (0.00-0.20) Absolute Immature Granulocyte (auto 0.12 K/uL (0-1) Nucleated Red Blood Cells 0.0 % (0.0-0.19) Red Blood Cell Morphology See comments Sodium Level 138 mmol/L (136-145) Potassium Level 3.5 mmol/L (3.5-5.1) Chloride Level 103 mmol/L (101-111) Carbon Dioxide Level 26 mmol/L (21-32) Blood Urea Nitrogen 15 mg/dL (7-18) Creatinine 0.7 mg/dL (0.5-1.3) Glomerular Filtration Rate Calc 104 mL/min (>90) Random Glucose 118 mg/dL (70-105) H Total Calcium 9.1 mg/dL (8.5-10.1) Total Creatine Kinase 66 U/L (21-232) # Troponin I High Sensitivity 11 ng/L (4-75) 11 ng/L (4-75) B-Type Natriuretic Peptide 40 pg/mL (0-100) Urine Color YELLOW (YELLOW) Urine Appearance CLEAR (CLEAR) Urine pH 6.0 (5.0-8.0) Urine Specific [place] 1.025 (1.001-1.031) Urine Protein 20 mg/dL (NEGATIVE) H Urine Glucose (UA) NEGATIVE mg/dL (NEGATIVE) Urine Ketones NEGATIVE mg/dL (NEGATIVE) Urine Occult Blood +- (TRACE) (NEGATIVE) H Urine Nitrate NEGATIVE (NEGATIVE) Urine Bilirubin NEGATIVE mg/dL (NEGATIVE) Urine Urobilinogen 0.2 mg/dL (0.2-1.0) Urine Leukocyte Esterase NEGATIVE [place]/uL Urine RBC 6-10 /HPF (0-1) H Urine WBC 2-5 /HPF (0-1) H Urine Bacteria None /HPF (None Seen) MDM CC: Primary concern is upper back pain but he said it wraps around his chest, he also had some bilateral hand cramping this morning Historian: Patient Comorbidities: Dyslipidemia, hypertension, previous history of a CABG and cardiac stents Limitations by social determinants of health: None Differential diagnosis: CAD, heart failure, PE, musculoskeletal pain, post operation paresthesias/nerve pain, other. Vital signs: Stable, remained stable in the ER Clinical exam is unremarkable. No clinical signs of heart failure. EKG: Sinus rhythm, rate 76, normal axis, good R-wave progression. T-wave inversions lead V3 to be six consistent with reperfusion, no signs of acute a bnormalities or ischemia. Independently interpreted by me. Labs (independently ordered and interpreted by me): No leukocytosis or anemia, chemistries unremarkable. Troponin x2 is normal. BNP normal. CK normal. Urinalysis normal. Chest x-ray (independently ordered and interpreted by me): Sternotomy wires intact, no cardiomegaly pleural effusions or focal infiltrates. Unremarkable chest x-ray. Patient's symptoms are most likely musculoskeletal or postoperative paresthesias. Very low suspicion for ACS, PE, thoracic dissection, pneumothorax, or any other life-threatening pathology. Patient received IV Toradol here in the ER, also oral gabapentin. Patient is currently taking [place] at home. The plan will be to discharge with the gabapentin and uninsured short course of meloxicam, and recommend that he follows up with Dr. Rosales as needed. Patient agrees with the plan. ED Course Orders Procedure Category Date Status Time Vital Signs Per CPOE 10/17/24 Transmitted Routine 11:24 Chest 1vw RAD 10/17/24 Resulted 11:24 12 Lead Ekg Tracing- EKG 10/17/24 Logged Technical 11:24 Oxygen By Nc/Pulse Ox CPOE 10/17/24 Transmitted 11:24 Maintain Iv CPOE 10/17/24 Transmitted 11:24 Iv Insertion CPOE 10/17/24 Transmitted 11:24 Cardiac Monitoring CPOE 10/17/24 Transmitted 11:24 Pulse Oximetry With CPOE 10/17/24 Transmitted Vs And Prn 11:24 Cbc With Differential LAB 10/17/24 Complete 11:24 Activity: Br W/Brp CPOE 10/17/24 Transmitted With Assist 11:24 Creatine Kinase, Total LAB 10/17/24 Complete 11:24 Troponin I High LAB 10/17/24 Complete Sensitivity 11:24 Urinalysis Profile LAB 10/17/24 Complete 11:24 Basic Metabolic Panel LAB 10/17/24 Complete 11:24 Troponin I High LAB 10/17/24 Complete Sensitivity 12:19 Gabapentin 300 Mg Cap PHA 10/17/24 Complete (Neurontin 300 Mg 12:20 B-Type Natriuretic LAB 10/17/24 Complete Peptide 12:23 Ketorolac PHA 10/17/24 Complete Tromethamine 15mg/Ml 12:30 Current Medications Medications (Trade) Dose Ordered Sig/Jasmyne Route PRN Reason Start Time Stop Time Status Last Admin Dose Admin Gabapentin (NEURontin 300 MG CAP) 300 mg ONCE STAT PO 10/17/24 12:20 10/17/24 12:23 DC 10/17/24 13:39 Ketorolac Tromethamine (toRADol) 15 mg ONCE ONCE IV 10/17/24 12:30 10/17/24 12:31 DC 10/17/24 13:40 Vital Signs Date Time Temp Pulse Resp B/P (MAP) Pulse Ox O2 Delivery O2 Flow Rate FiO2 10/17/24 13:10 71 16 128/77 96 Room Air* 0 21 10/17/24 11:21 98.1 88 14 120/73 96 Room Air 0 DX & DISP Disposition: Discharge Departure Impression: Primary Impression: Neuralgia of chest Additional Impression: Chest wall pain Condition: Stable Scripts Meloxicam (Meloxicam) 15 Mg Tablet 15 MG PO DAILY PRN for PAIN for 10 Days, #10 TAB Prov: TAIRQ RENTERIA DO 10/17/24 Gabapentin (Gabapentin) 100 Mg Capsule 1 CAP PO TID for 30 Days, #90 CAP 0 Refills Prov: TARIQ RENTERIA DO 10/17/24 Additional Instructions: Your symptoms are most likely related to post CABG neuropathic chest wall pain. This type of pain is common and typically improves over time. Your EKG is stable. Your chest x-ray is clear. Your blood work is unremarkable. I have prescribed meloxicam. Take this once per day with food for the next 10 days to reduce inflammation and pain. I have prescribed gabapentin. You can take one capsule by mouth 3 times a day to help with nerve pain. This medication may cause drowsiness or dizziness-do n ot drive or operate heavy machinery until you know how it effects you. You can continue taking the hydrocodone-acetaminophen tabs that you have already been provided. Resume activity as tolerated. Avoid heavy lifting or strenuous activity until you are cleared by the surgeon. Follow up with Dr. Rosales as an outpatient. Please return to the emergency department if you develop chest pain that feels different than her usual pain, shortness of breath, palpitations, or have any other concerning symptoms. Referrals: ROBERTO SYED MD (PCP) THOMAS GRIMES MD Oct 17, 2024 11:45 TARIQ RENTERIA DO Oct 17, 2024 14:16
[2024-10-17 11:55] LABS: IMMATURE GRANULOCYTE ABSOLUTE 0.12 K/uL (0-1); NUCLEATED RED BLOOD CELLS 0.0 % (0.0-0.19); PLATELET COUNT (AUTO) 382 K/uL (130-400); RED BLOOD CELL COUNT(AUTO) 5.50 MIL/uL (4.50-6.20); RED CELL DISTRIBUTION WIDTH 13.9 % (11.0-15.5); WHITE BLOOD COUNT (AUTO) 10.3 K/uL (4.8-10.8)
[2024-10-17 12:03] LABS: CREATININE 0.7 mg/dL (0.5-1.3); GLOMERULAR FILTR. RATE CALC 104.0 mL/min (>90); GLUCOSE,RANDOM 118.0 mg/dL (70-105); SODIUM SERUM 138.0 mmol/L (136-145); UREA NITROGEN, BLOOD 15.0 mg/dL (7-18)
[2024-10-17 12:07] LABS: APPEARANCE,URINE CLEAR (CLEAR); GLUCOSE, URINE (UA) NEGATIVE (NEGATIVE); LEUKOCYTE ESTERASE ,URINE NEGATIVE Leu/uL (NEGATIVE); NITRATE,URINE NEGATIVE (NEGATIVE); OCCULT BLOOD,URINE +- (TRACE) (NEGATIVE)
[2024-10-17 12:09] LABS: ADD UA MICROSCOPIC YES
[2024-10-17 12:09] LABS: CREATINE KINASE, TOTAL 66.0 U/L (21-232)
--- NOTE | 2024-10-17 12:51 | HMCIMG ---
EXAM: CR Chest, 1 View. CLINICAL HISTORY: CHEST PAIN COMPARISON: Radiograph dated July 28, 2024 FINDINGS: There is airspace disease within the bilateral lower lobes that may reflect an infectious process. There is no pleural effusion or pneumothorax. Heart size is stable. Pulmonary vessels are within normal limits. IMPRESSION: 1. Bilateral lower lobe airspace disease, possibly infectious. /[place]
[2024-10-17] MEDS: GABAPENTIN 300 MG CAPSULE PO STA (13:39)
[2024-10-17] MEDS ORDERED: MELO-108 PO (14:12)
[2024-10-17] MEDS ORDERED: GABA-529 PO (14:12)
--- NOTE | 2024-10-17 14:16 | EKG ---
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
[2024-10-17 14:18] VITALS: BP 143/81; PULSE 84; RESP 18; TEMP 98.1; O2SAT 95
== END 2024-10-17 14:33 | disposition home or self-care (01) ==
LOC: EDH 11:20
DX: R07.89 Other chest pain (principal); M79.2 Neuralgia and neuritis, unspecified; E03.9 Hypothyroidism, unspecified; E78.00 Pure hypercholesterolemia, unspecified; F17.200 Nicotine dependence, unspecified, uncomplicated; I10 Essential (primary) hypertension; I25.10 Atherosclerotic heart disease of native coronary artery without angina pectoris; Z79.899 Other long term (current) drug therapy; Z79.82 Long term (current) use of aspirin; Z88.5 Allergy status to narcotic agent; Z95.1 Presence of aortocoronary bypass graft; Z95.5 Presence of coronary angioplasty implant and graft
CPT/HCPCS: 99285; 96374; 71045; 82550; 84484 ×2; 80048; 83880; 85025; 81001; 36415; 93005; J1885

== ENCOUNTER 2024-11-05 12:39 | Emergency (ER) | payer OTHER, MEDICARE ==
[~2024-11-05] VITALS: Ht 167.6 cm; Wt 68.0 kg
[~2024-11-05 12:39] MED LIST changes: +GABA-529 PO; +MELO-108 PO
--- NOTE | 2024-11-05 12:48 | ERN ---
ED Note History of Present Illness Stated Complaint: GENERALIZED PAIN Chief Complaint: Generalized Body Aches Time Seen by MD: 12:41 Dictation: PATIENT IS A 64-YEAR-OLD MALE COMING IN TODAY WITH COMPLAINTS OF GENERALIZED BODY WEAKNESS/MALAISE ONSET FOR THE LAST THREE WEEKS. NO CHEST PAIN NO BACK PAIN NO SOB NO NAUSEA VOMITING NO FEVER NO CHILLS. HE HAS NO FEVER AT THIS TIME. NO SPECIFIC COMPLAINTS STATES HE IS SCHEDULED FOR A CT OF THE HIS ABDOMEN AND PELVIS BY HIS DOCTOR ON 11/12 HOWEVER DOES NOT KNOW WHY BECAUSE HE IS NOT HAVING ANY PAIN. Allergies: Coded Allergies: codeine (Unverified Allergy, Unknown, 05/23/24) diphenhydramine (Unverified Allergy, Unknown, 01/09/22) Home Meds Active Scripts Meloxicam (Meloxicam) 15 Mg Tablet, 15 MG PO DAILY PRN for PAIN for 10 Days, #10 TAB Prov:TARIQ RENTERIA DO 10/17/24 Gabapentin (Gabapentin) 100 Mg Capsule, 1 CAP PO TID for 30 Days, #90 CAP 0 Refills Prov:TARIQ RENTERIA DO 10/17/24 Reported Medications Furosemide (Furosemide) 20 Mg Tablet, 1 TAB PO DAILY for 30 Days, #30 TAB 0 Refills 07/30/24 Metoprolol Tartrate (Metoprolol Tartrate) 25 Mg Tablet, 1 TAB PO BID for 30 Days, #60 TAB 0 Refills 07/30/24 Clopidogrel Bisulfate (Clopidogrel) 75 Mg Tablet, 75 MG PO AM, TAB 07/19/24 Isosorbide Mononitrate (Isosorbide Mononitrate ER) 60 Mg Tab.er.24h, 60 MG PO AM, TAB 07/19/24 Hydrocodone/Acetaminophen (Hydrocodon-Acetaminophn 10-325) 10 Mg-325 Mg Tablet, 1 EACH PO BID PRN for PAIN, TAB 05/23/24 Calcium Carbonate/Vitamin D3 (Calcium 600 mg-D3 20 Mcg Cplt) 600 Mg Calcium-20 Mcg (800 Unit) Tablet, 1 EACH PO DAILY, TAB 05/23/24 Ezetimibe (Ezetimibe) 10 Mg Tablet, 10 MG PO DAILY, TAB 05/23/24 Levothyroxine Sodium (Levothyroxine) 50 Mcg Capsule, 50 MCG PO ACBKFST, CAP 05/23/24 Pantoprazole Sodium (Pantoprazole Sodium) 40 Mg Tablet.dr, 40 MG PO DAILY, TAB 05/23/24 Atorvastatin Calcium (LIPITOR) 40 Mg Tablet, 40 MG PO DAILY, TAB 05/23/24 [place]-3 Fatty Acids/Fish Oil (Fish Oil 1,000 mg Softgel) 300 Mg-1,000 Mg Capsule, 1 EACH PO DAILY, CAP 04/10/16 Aspirin (ASPIRIN 81MG CHEW TAB) 81 Mg Tab.chew, 81 MG PO DAILY, TAB.CHEW 04/10/16 Past Medical History Past Medical History: CAD, Heart Disease, Hypertension Additional Past Medical Hx: HX OF DE Surgical History: CABG Surgical History Other: CARDIAC STENTS Family History: DM, HTN Social History: Smokers, ETOH, Lives with family RN Note Reviewed/Agreed w/PFSH: Yes Review of System Dictation CONSTITUTIONAL: NEGATIVE EXCEPT FOR HPI GB W LAST MALAISE HEAD/FACE: NEGATIVE EXCEPT FOR HPI EENT: NEGATIVE EXCEPT FOR HPI RESPIRATORY: NEGATIVE EXCEPT FOR HPI GASTROINTESTINAL/ABDOMINAL: NEGATIVE EXCEPT FOR HPI GENITOURINARY: NEGATIVE EXCEPT FOR HPI MUSCULOSKELETAL: NEGATIVE EXCEPT FOR HPI INTEGUMENTARY: NEGATIVE EXCEPT FOR HPI NEUROLOGICAL/PSYCH: NEGATIVE EXCEPT FOR HPI HEMATOLOGIC/LYMPHATIC: NEGATIVE EXCEPT FOR HPI ALL SYSTEMS NEGATIVE, EXCEPT NOTED ABOVE. 13 POINT REVIEW OF SYSTEMS ASSESSED AND ALL NEGATIVE EXCEPT FOR ABOVE. Initial Vital Sign VS Vital Signs Date Time Temp Pulse Resp B/P (MAP) Pulse Ox O2 Delivery O2 Flow Rate FiO2 11/05/24 12:42 97.2 93 16 109/67 96 Room Air 0 11/05/24 12:44 21 Physical Exam Dictation VITAL SIGNS REVIEWED GENERAL APPEARANCE: ALERT, ORIENTED X 3, NO ACUTE DISTRESS, WELL DEVELOPED, NOURISHED. NO PAIN AT THIS TIME. HEAD AND FACE: NON-TRAUMATIC. EYES: PERRL, PINK CONJUNCTIVAS, EYELID NO TRAUMA, ANTERIOR CHAMBER WITH ARCUS SENILIS. EARS: PINNAS INTACT AND NO SIGNS OF TRAUMA OR ERYTHEMA EAR CANALS CLEAR AND NO DISCHARGE TM NO ERYTHEMA NOSE: NO DISCHARGE, NO BLEEDING. OROPHARYNX: MOUTH NORMAL, TONGUE PINK, PHARYNX CLEAR,NO ERYTHEMA, TONSILS NO EXUDATES, NO ABSCESSES NOTED, MUCOUS MEMBRANE MOIST NECK: SUPPLE, NON-TENDER, NO THYROMEGALY, NO MASSES, NO JVD, NO BRUITS BREAST:DEFERRED CHEST:NO TENDERNESS, NO CREPITUS, NO PARADOXICAL MOVEMENT, NO RETRACTIONS LUNGS:CLEAR, WELL-VENTILATED, SYMMETRIC, NO RALES, NO WHEEZING, NO RHONCHI, NO STRIDOR, GOOD BREATH SOUNDS BILATERALLY HEART: REGULAR RATE, REGULAR RHYTHM, NO MURMUR, NO GALLOPS VASCULAR: NO PERIPHERAL EDEMA, ABDOMEN: SOFT, POSITIVE BOWEL SOUNDS, NONDISTENDED, NO GUARDING, NONTENDER, NO REBOUND, NO MASSES NO HEPATOMEGALY, NO SPLENOMEGALY, NO KIRBY'S SIGN, NO HERNIAS. RECTAL: DEFERRED GENITAL: DEFERRED NEUROLOGICAL: NORMAL SPEECH, MOTOR FUNCTION INTACT, SENSORY FUNCTION INTACT MUSCULOSKELETAL: NECK NONTENDER, FULL RANGE OF MOTION, BACK NONTENDER, FULL RANGE OF MOTION, EXTREMITIES: NONTENDER, FULL RANGE OF MOTION SKIN: COLOR PINK, DRY, NO TURGOR, NO RASH, NO LACERATIONS, NO ABRASIONS, NO CONTUSIONS. LYMPHATIC: DEFERRED Results (Laboratory/Radiology) Laboratory/Radiology Laboratory Tests Test 11/05/24 12:55 11/05/24 13:06 11/05/24 14:09 Urine Color YELLOW (YELLOW) Urine Appearance CLEAR (CLEAR) Urine pH 5.5 (5.0-8.0) Urine Specific [place] 1.020 (1.001-1.031) Urine Protein 10 mg/dL (NEGATIVE) H Urine Glucose (UA) NEGATIVE mg/dL (NEGATIVE) Urine Ketones NEGATIVE mg/dL (NEGATIVE) Urine Occult Blood SMALL (NEGATIVE) H Urine Nitrate NEGATIVE (NEGATIVE) Urine Bilirubin NEGATIVE mg/dL (NEGATIVE) Urine Urobilinogen 0.2 mg/dL (0.2-1.0) Urine Leukocyte Esterase NEGATIVE [place]/uL Urine RBC 2-5 /HPF (0-1) H Urine WBC 2-5 /HPF (0-1) H Urine Bacteria None /HPF (None Seen) SARS-CoV-2 Antigen (Rapid) PRESUMPTIVE NEGATIVE White Blood Count 12.0 K/uL (4.8-10.8) H Red Blood Count 6.24 MIL/uL (4.50-6.20) H Hemoglobin 15.6 g/dL (14.0-18.0) Hematocrit 49.2 % (42-54) Mean Corpuscular Volume 78.8 fL (79-99) L Mean Corpuscular Hemoglobin 25.0 pg (27.0-33.0) L Mean Corpuscular Hemoglobin Concent 31.7 g/dL (32.0-36.0) L Red Cell Distribution Width 14.6 % (11.0-15.5) Platelet Count 478 K/uL (130-400) H Mean Platelet Volume 10.7 fL (7.5-10.5) H Immature Granulocyte % (Auto) 1.8 % (0-1) H Neutrophils (%) (Auto) 70.8 % (40.0-77.0) Lymphocytes (%) (Auto) 17.9 % (21.0-51.0) L Monocytes (%) (Auto) 5.6 % (3.0-13.0) Eosinophils (%) (Auto) 2.8 % (0.0-8.0) Basophils (%) (Auto) 1.1 % (0.0-5.0) Neutrophils # (Auto) 8.5 K/uL (1.8-7.7) H Lymphocytes # (Auto) 2.1 K/uL (1.0-4.8) Monocytes # (Auto) 0.7 K/uL (0.1-1.0) Eosinophils # (Auto) 0.34 K/uL (0.00-0.70) Basophils # (Auto) 0.13 K/uL (0.00-0.20) Absolute Immature Granulocyte (auto 0.21 K/uL (0-1) Nucleated Red Blood Cells 0.0 % (0.0-0.19) Red Blood Cell Morphology See comments Sodium Level 130 mmol/L (136-145) L Potassium Level 3.8 mmol/L (3.5-5.1) Chloride Level 96 mmol/L (101-111) L Carbon Dioxide Level 26 mmol/L (21-32) Blood Urea Nitrogen 14 mg/dL (7-18) Creatinine 0.8 mg/dL (0.5-1.3) Glomerular Filtration Rate Calc 100 mL/min (>90) Random Glucose 103 mg/dL (70-105) Total Calcium 9.1 mg/dL (8.5-10.1) Troponin I High Sensitivity 15 ng/L (4-75) 14 ng/L (4-75) Lipase 69 U/L (16-77) Labs Reviewed?: Yes EKG Comment: EKG SINUS RHYTHM/HEART RATE 85/LEFT ATRIAL ENLARGEMENT T-WAVE INVERSION LEADS V4 V5 V6 ONE THOUSAND FOUR HUNDRED/EKG SINUS RHYTHM/HEART RATE 83/AXIS NORMAL/T-WAVE INVERSION REMAINS LEADS V4 FIVE AND SIX NO CHANGES. HEART SCORE IS FOUR ED Course ED Course Orders Procedure Category Date Status Time Cbc With Differential LAB 11/05/24 Complete 12:45 Troponin I High LAB 11/05/24 Complete Sensitivity 12:45 Urinalysis Profile LAB 11/05/24 Complete 12:45 12 Lead Ekg Tracing- EKG 11/05/24 Logged Technical 12:45 Basic Metabolic Panel LAB 11/05/24 Complete 12:45 Lipase LAB 11/05/24 Complete 12:45 Covid19 (Sars Antigen LAB 11/05/24 Complete Rapid) 12:48 12 Lead Ekg Tracing- EKG 11/05/24 Logged Technical 13:56 Troponin I High LAB 11/05/24 Complete Sensitivity 13:56 Vital Signs Date Time Temp Pulse Resp B/P (MAP) Pulse Ox O2 Delivery O2 Flow Rate FiO2 11/05/24 12:44 97.2 93 16 109/67 96 Room Air* 0 21 11/05/24 12:42 97.2 93 16 109/67 96 Room Air 0 1525/PATIENT HAS NO CHANGES IN HIS CONDITION. NO COMPLAINTS OF PAIN STILL FEELS WEAK HOWEVER NO ACUTE FINDINGS. WE WILL DISCHARGE PATIENT HOME TO FOLLOW UP WITH HIS PRIMARY CARE DOCTOR. ADDITIONALLY HE WAS STRONGLY ENCOURAGED TO KEEP HIS APPOINTMENT FOR THE CAT SCAN ON THE 26 OF THIS MONTH. HEART Score Response (Comments) Value EKG: Repolarization changes 1 Age: 45-65yrs (+1) 1 Risk Factors: 3+ risk factors (+2) 2 Initial Troponin: Normal limit (0) 0 Total 4 Medical Decision Making MDM MDM: DIFFERENTIAL DIAGNOSIS: ACS/AMI/ELECTROLYTE IMBALANCE/DEHYDRATION/SARS COVID/PNEUMONIA/BRONCHITIS/ELECTROLYTE IMBALANCE/DEHYDRATION RATIONALE: TESTS CONSIDERED AND ORDERED SECONDARY TO SHARED DECISION MAKING INCLUDE: EKG/LABS/RADIOLOGY PREVIOUS OUTSIDE RECORDS REVIEWED: OLD ER VISITS. RISK OF COMPLICATION AND/OR MORBIDITY OR MORTALITY OF PATIENT MANAGEMENT: NONE MEDICATIONS-PER MEDICATION RECONCILIATION NEED FOR HOSPITALIZATION: PATIENT DOES NOT MEET CRITERIA FOR HOSPITALIZATION. NONE NEED FOR EMERGENCY MAJOR/MINOR SURGERY: NO THERE ARE NO SOCIAL CONCERNS WITH THIS PATIENT. PRESCRIPTION DRUG MANAGEMENT NONE PRESCRIPTIONS WILL INCLUDE SYMPTOMATIC CARE PATIENT'S PRIOR EXTERNAL MEDICAL RECORDS FROM OTHER ER VISITS WERE REVIEWED BY ME INDICATED. PRIOR TESTING AND RESULTS FROM PREVIOUS VISITS WERE REVIEWED. PRIOR TESTS WERE TAKEN INTO ACCOUNT WITH MEDICAL DECISION MAKING AND RESOURCE UTILIZATION, INDEPENDENT HISTORIAN/HISTORIANS WERE USED TO OBTAIN COMPLETE MEDICAL HISTORY. I INDEPENDENTLY INTERPRETED THE TEST THAT WERE PERFORMED, RESULTS WERE REVIEWED BY ME AND CONSIDERED FINDINGS ON RADIOLOGY IF ORDERED. MEDICAL MANAGEMENT AND EXAMINATION INTERPRETATION DISCUSSIONS WERE HAD BY ME WITH OTHER QUALIFIED HEALTHCARE PROFESSIONALS INDICATED FOR THE PATIENT'S CARE. DX & DISP Disposition: Discharge Departure Impression: Primary Impression: Myalgia Additional Impressions: Hyponatremia, Hypochloremia Condition: Stable Additional Instructions: FOLLOW-UP WITH PRIMARY CARE PROVIDER IN 1 TO 2 DAYS. TAKE MEDICATIONS DIRECTED HERE IN THE EMERGENCY ROOM. OKAY TO CONTINUE HOME MEDICATIONS UNLESS OTHERWISE DISCUSSED DURING YOUR VISIT IN THE EMERGENCY ROOM TODAY. RETURN TO YOUR NEAREST EMERGENCY ROOM IF SYMPTOMS WORSEN OR IF THERE IS NO IMPROVEMENT. CALL 911 IF YOU NEED IMMEDIATE ASSISTANCE. TAKE TYLENOL OR MOTRIN OVER-THE-C OUNTER NEEDED AND IF NO CONTRAINDICATIONS ARE PRESENT. INCREASE ORAL HYDRATION. A WOUND CULTURE OR URINE CULTURE WAS ORDERED HERE IN THE EMERGENCY ROOM DEPARTMENT PLEASE FOLLOW-UP WITH PRIMARY CARE PROVIDER AND ADVISE THEM TO GET REPEAT PORTS FROM OUR FACILITY. IF YOU HAD ANY NÉSTOR WRAP/SPLINTS THAT WERE APPLIED HERE, PLEASE DO NOT REMOVE THEM UNTIL YOU SEE YOUR PRIMARY CARE OR SPECIALTY. \KEEP YOUR APPOINTMENT FOR YOUR CAT SCAN SCHEDULED BY YOUR DOCTOR. SEE YOUR PRIMARY CARE DOCTOR FOR FOLLOW UP IN THE NEXT 1-2 DAYS. Referrals: ROBERTO SYED MD (PCP) Time of Disposition: 15:28 I have reviewed the case, and I agree with, Diagnosis and Plan OG ROMERO NP Nov 05, 2024 12:48
[2024-11-05 13:14] LABS: IMMATURE GRANULOCYTE ABSOLUTE 0.21 K/uL (0-1); NUCLEATED RED BLOOD CELLS 0.0 % (0.0-0.19); PLATELET COUNT (AUTO) 478 K/uL (130-400); RED BLOOD CELL COUNT(AUTO) 6.24 MIL/uL (4.50-6.20); RED CELL DISTRIBUTION WIDTH 14.6 % (11.0-15.5); WHITE BLOOD COUNT (AUTO) 12.0 K/uL (4.8-10.8)
[2024-11-05 13:24] LABS: CREATININE 0.8 mg/dL (0.5-1.3); GLOMERULAR FILTR. RATE CALC 100.0 mL/min (>90); GLUCOSE,RANDOM 103.0 mg/dL (70-105); SODIUM SERUM 130.0 mmol/L (136-145); UREA NITROGEN, BLOOD 14.0 mg/dL (7-18)
[2024-11-05 13:54] LABS: APPEARANCE,URINE CLEAR (CLEAR); GLUCOSE, URINE (UA) NEGATIVE (NEGATIVE); LEUKOCYTE ESTERASE ,URINE NEGATIVE Leu/uL (NEGATIVE); NITRATE,URINE NEGATIVE (NEGATIVE); OCCULT BLOOD,URINE SMALL (NEGATIVE)
[2024-11-05 13:55] LABS: ADD UA MICROSCOPIC YES
[2024-11-05 15:30] VITALS: BP 114/62; PULSE 88; RESP 16; TEMP 97.2; O2SAT 96
--- NOTE | 2024-11-06 06:36 | EKG ---
[facility] Test Date: 2024-11-05 Test Time: 12:46:54 Pat Name: DIANDRA SOLER Department: [facility] Room: Gender: M Food Order Expediter: 08 : 1960 Requested By: OG ROMERO Order Number: [id number] Reading MD: Loren Block Measurements Intervals [place] Rate: 85 P: 45 NM: 162 QRS: 38 QRSD: 96 T: 136 QT: 373 QTc: 445 Interpretive Statements Sinus rhythm Probable left atrial enlargement Nonspecific T abnrm, anterolateral leads Compared to ECG 10/17/2024 11:25:03 Possible ischemia no longer present Electronically Signed On 11-06-2024 11:35:37 CDT by Loren Block Please click the below link to view image of tracing.
--- NOTE | 2024-11-06 06:36 | EKG ---
[facility] Test Date: 2024-11-05 Test Time: 14:00:40 Pat Name: DIANDRA SOLER Department: [facility] Room: Gender: M Cost Estimating Engineer: [id number] : 1960 Requested By: OG ROMERO Order Number: [id number] Reading MD: Loren Block Measurements Intervals [place] Rate: 83 P: 38 AL: 162 QRS: 30 QRSD: 98 T: 136 QT: 372 QTc: 437 Interpretive Statements Sinus rhythm Probable left atrial enlargement Abnormal T, consider ischemia, lateral leads Compared to ECG 11/05/2024 12:46:54 T-wave abnormality now present Possible ischemia now present Electronically Signed On 11-06-2024 11:35:28 CDT by Loren Block Please click the below link to view image of tracing.
== END 2024-11-05 15:30 | disposition home or self-care (01) ==
LOC: EDH 12:39
DX: M79.10 Myalgia, unspecified site (principal); E87.1 Hypo-osmolality and hyponatremia; E87.8 Other disorders of electrolyte and fluid balance, not elsewhere classified; I25.10 Atherosclerotic heart disease of native coronary artery without angina pectoris; I11.9 Hypertensive heart disease without heart failure; F17.200 Nicotine dependence, unspecified, uncomplicated; Z79.82 Long term (current) use of aspirin; Z79.899 Other long term (current) drug therapy; Z88.5 Allergy status to narcotic agent; Z95.1 Presence of aortocoronary bypass graft; Z95.5 Presence of coronary angioplasty implant and graft; Z20.822 Contact with and (suspected) exposure to COVID-19
CPT/HCPCS: 36415; 80048; 81001; 83690; 84484; 85025; 87426; 93005; 99283; 99284

== ENCOUNTER → 2024-11-12 | Outpatient (CLI) | payer OTHER, MEDICARE ==
--- NOTE | 2024-11-13 13:25 | HMCIMG ---
EXAM: CT Abdomen and Pelvis Without IV Contrast CLINICAL HISTORY: Epigastric pain. TECHNIQUE: Axial computed tomography images of the abdomen and pelvis without intravenous contrast. CONTRAST: No IV contrast. COMPARISON: None provided. FINDINGS: LUNG BASES: Multiple subsegmental atelectatic bands are seen in both lung bases. Sternotomy wires in situ. No pleural effusions are seen. LIVER: Unremarkable. GALLBLADDER AND BILE DUCTS: The gallbladder appears within normal limits. No radiopaque gallstones are seen. No biliary ductal dilatation is evident. PANCREAS: Unremarkable. SPLEEN: Unremarkable. ADRENAL GLANDS: Unremarkable. KIDNEYS, URETERS, AND BLADDER: The kidneys appear within normal limits. There is no hydronephrosis or hydroureter. No urinary calculi are seen. A small non-obstructive calculus in the mid pole of the right kidney measures 3.8 mm. A cortical cyst without calcification, solid component, or septation is seen in the mid pole of the right kidney, measuring 4.4 x 4.2 cm. Mild bilateral perinephric fat stranding is seen. STOMACH AND BOWEL: Unremarkable appearance of the stomach and bowel. No evidence of bowel obstruction. No findings suggesting enteritis or colitis. APPENDIX: Appendix not seen. PERITONEUM: No free fluid. No free air. LYMPH NODES: No lymphadenopathy is evident. REPRODUCTIVE: Unremarkable as visualized. VASCULATURE: Atherocalcific changes are seen in the aorta and its branches. A stent is noted in the left common iliac vein. No evidence of abdominal aortic aneurysm. BONES: No aggressive-appearing osseous lesion. No acute osseous pathology is evident. Bilateral pars interarticularis defects at the L5 level are seen. Grade I retrolisthesis of L4 over L5 is noted. Spondylotic changes are seen in the visualized spine.IMPRESSION: 1. No acute intraabdominal or pelvic pathology. 2. 4.4 x 4.2 cm simple cortical cyst and 3.8 mm non-obstructing calculus in the right kidney mid pole. 3. Stent in the left common iliac vein. /[place]
== END | disposition home or self-care (01) ==
LOC: RAH 09:56
PROVIDERS: ATTEND Internal Medicine Cardiovascular Disease
DX: N20.0 Calculus of kidney (principal); J98.11 Atelectasis; I70.0 Atherosclerosis of aorta; M47.817 Spondylosis without myelopathy or radiculopathy, lumbosacral region; M43.17 Spondylolisthesis, lumbosacral region; R10.13 Epigastric pain; Z95.820 Peripheral vascular angioplasty status with implants and grafts
CPT/HCPCS: 74176

== ENCOUNTER → 2024-12-19 | Outpatient (CLI) | payer OTHER, MEDICARE ==
[~2024-12-19] MED LIST changes: -EZET10TA48 PO; +EZET10TA80 PO
--- NOTE | 2024-12-20 12:27 | HMCIMG ---
EXAM: MR Thoracic Spine Without Intravenous Contrast. CLINICAL HISTORY: Muscle weakness. TECHNIQUE: Magnetic resonance images of the thoracic spine in multiple planes. CONTRAST: None. COMPARISON: None. FINDINGS: The cervicothoracic and thoracolumbar junction is intact. No acute fracture. Mild levoscoliosis. Normal thoracic curvature. Multilevel spondylosis is evident by marginal osteophytes and facet joint arthropathy. Multilevel disc desiccation and degenerative disc height reduction were noted, more pronounced at the T6-T7 level. Normal vertebral body heights. Modic type II changes in the contiguous endplates at the T1-T2, T3-T4, T5-T6, through T9-T10 levels. Small hemangioma in the T12 vertebral body. The thoracic cord is in an anatomic location without abnormal signals. No abnormal extra-axial masses are present. Moderate-sized simple cortical cyst in the lower pole of the right kidney. [id number] findings are as follows: C7-T1: No disc bulge or herniation. No neural foraminal, lateral recess, or spinal canal stenosis. T1-T2: 3 mm disc osteophyte complex bulge causing mild indentation on the anterior thecal sac. No neural foraminal or lateral recess stenosis. T2-T3: No disc bulge or herniation. No neural foraminal, lateral recess, or spinal canal stenosis. T3-T4: No disc bulge or herniation. No neural foraminal, lateral recess, or spinal canal stenosis. T4-T5: 1 mm central disc osteophyte complex bulge causing mild indentation on the anterior thecal sac. No neural foraminal or lateral recess stenosis. T5-T6: 3 mm disc osteophyte complex bulge causing mild indentation on the anterior thecal sac. No neural foraminal or lateral recess stenosis. T6-T7: 2 mm disc osteophyte complex bulge causing mild indentation on the anterior thecal sac. No neural foraminal or lateral recess stenosis. T7-T8: 2 mm disc osteophyte complex bulge causing mild indentation on the anterior thecal sac. No neural foraminal or lateral recess stenosis. T8-T9: 2 mm disc osteophyte complex bulge causing mild indentation on the anterior thecal sac. No neural foraminal or lateral recess stenosis. T9-T10: 2 mm disc osteophyte complex bulge causing mild indentation on the anterior thecal sac. No neural foraminal or lateral recess stenosis. T10-T11: 3 mm disc osteophyte complex bulge causing mild indentation on the anterior thecal sac. No neural foraminal or lateral recess stenosis. T11-T12: 2 mm disc osteophyte complex bulge causing mild indentation on the anterior thecal sac. No neural foraminal or lateral recess stenosis. T12-L1: 2 mm disc osteophyte complex bulge causing mild indentation on the anterior thecal sac. No neural foraminal or lateral recess stenosis. IMPRESSION: Mild levoscoliosis. Mild to moderate multilevel spondylosis and degenerative disc changes. Modic type II changes in the contiguous endplates at the T1-T2, T3-T4, T5-T6, through T9-T10 levels. Mild indentation on the anterior thecal sac at the T1-T2, T4-T5, through T12-L1 levels. /[place]
--- NOTE | 2024-12-20 12:28 | HMCIMG ---
EXAM: MR Cervical Spine Without Intravenous Contrast. CLINICAL HISTORY: Muscle weakness. TECHNIQUE: Magnetic resonance images of the cervical spine in multiple planes. CONTRAST: None. COMPARISON: None. FINDINGS: The imaged posterior fossa is unremarkable. The craniocervical junction is intact. No acute fracture. Mild degenerative anterolisthesis of C4 over C5. Mild degenerative retrolisthesis of C5 over C6. Multilevel spondylosis is evident by marginal osteophytes and facet joint arthropathy. Multilevel disc desiccation noted. Severe degenerative disc height reduction at the C5-C6 level. Normal vertebral body and remaining disc heights. Modic type II changes in the contiguous endplates at the C5-C6 and T1-T2 levels. The cervical cord is in an anatomic location. No abnormal signal involves the cord. No extra-axial masses. The surrounding soft tissues are unremarkable. Level by level, disease is present as follows: C1-C2: Mild osteoarthritis. C2-C3: 1 mm disc osteophyte complex bulge and facet joint arthropathy causing mild indentation on the anterior thecal sac and mild to moderate right foraminal narrowing. No lateral recess stenosis. C3-C4: 3 mm left predominant disc osteophyte compresses the bulge and facet joint arthropathy, causing mild indentation on the anterior thecal sac, mild left lateral recess narrowing, and moderate to severe left foraminal narrowing. C4-C5: 2 mm disc osteophyte complex bulge causing mild indentation on the anterior thecal sac and mild right foraminal narrowing. No lateral recess stenosis. C5-C6: 3 mm disc osteophyte complex bulge causing mild indentation on the anterior thecal sac, mild bilateral lateral recess narrowing, moderate to severe right foraminal narrowing, and moderate left foraminal narrowing. C6-C7: 2 mm disc osteophyte complex bulge causing mild indentation on the anterior thecal sac. No neural foraminal or lateral recess stenosis. C7-T1: No disc bulge or herniation. No neural foraminal, lateral recess, or spinal canal stenosis. T1-T2: 3 mm disc osteophyte complex bulge causing mild indentation on the anterior thecal sac. No neural foraminal or lateral recess stenosis. IMPRESSION: Mild degenerative anterolisthesis of C4 over C5. Mild degenerative retrolisthesis of C5 over C6. Mild to moderate multilevel spondylosis. Severe degenerative disc height reduction at the C5-C6 level. Modic type II changes in the contiguous endplates at the C5-C6 and T1-T2 levels. Mild osteoarthritis. Mild indentation on the anterior thecal sac and mild to moderate right foraminal narrowing at the C2-C3 level. Mild indentation on the anterior thecal sac, mild left lateral recess narrowing, and moderate to severe left foraminal narrowing at the C3-C4 level. Mild indentation on the anterior thecal sac and mild right foraminal narrowing at the C4-C5 level. Mild indentation on the anterior thecal sac, mild bilateral lateral recess narrowing, moderate to severe right foraminal narrowing, and moderate left foraminal narrowing at the C5-C6 level. /[place]
== END | disposition home or self-care (01) ==
LOC: RAH 07:39
PROVIDERS: ATTEND Internal Medicine Cardiovascular Disease
DX: M47.813 Spondylosis without myelopathy or radiculopathy, cervicothoracic region (principal); M50.33 Other cervical disc degeneration, cervicothoracic region; M43.12 Spondylolisthesis, cervical region; M48.02 Spinal stenosis, cervical region; M41.84 Other forms of scoliosis, thoracic region; M25.78 Osteophyte, vertebrae; M62.81 Muscle weakness (generalized); G62.9 Polyneuropathy, unspecified; D18.09 Hemangioma of other sites; N28.1 Cyst of kidney, acquired
CPT/HCPCS: 72141; 72146

== ENCOUNTER 2025-02-02 14:03 | Emergency (ER) | payer OTHER, MEDICARE ==
[~2025-02-02] VITALS: Ht 167.6 cm; Wt 63.5 kg
--- NOTE | 2025-02-02 14:04 | NUR ---
TRAUMA LEVEL 2 ACTIVATED. SEE TRAUMA FLOW SHEET FOR DOCUMENTATION.
--- NOTE | 2025-02-02 14:46 | HMCIMG ---
EXAM: CT Head Without IV contrast. CLINICAL HISTORY: fall on plavix TECHNIQUE: Axial computed tomography images of the head/brain without intravenous contrast. COMPARISON: None provided. FINDINGS: BRAIN: No evidence of acute hemorrhage. No mass lesion. No CT evidence for acute territorial infarct. No midline shift or extra-axial collections. VENTRICLES: No hydrocephalus. ORBITS: The orbits are unremarkable. SINUSES AND MASTOIDS: The paranasal sinuses and mastoid air cells are clear. BONES: No fracture. SOFT TISSUES: Unremarkable. IMPRESSION: No acute intracranial abnormality. /[place]
--- NOTE | 2025-02-02 14:49 | HMCIMG ---
EXAM: CT Cervical Spine Without IV contrast. CLINICAL HISTORY: fall/pain TECHNIQUE: Axial computed tomography images of the cervical spine without intravenous contrast. Sagittal and coronal reformatted images were generated. COMPARISON: MRI dated FINDINGS: ALIGNMENT: Straightening of the cervical spine which can be seen with paraspinal muscle spasm. DEGENERATIVE CHANGES: Stable mild to moderate multilevel degenerative changes which are most pronounced at C5/C6. SOFT TISSUES: The prevertebral soft tissues are within normal limits. BONES: No fracture or dislocation of the cervical spine. IMPRESSION: 1. No fracture or dislocation of the cervical spine. 2. Straightening of the cervical spine which can be seen with paraspinal muscle spasm. 3. Stable mild to moderate multilevel degenerative changes which are most pronounced at C5/C6. /[place]
--- NOTE | 2025-02-02 14:51 | EKG ---
[facility] Test Date: 2025-02-02 Test Time: 14:43:34 Pat Name: DIANDRA SOLER Department: [facility] Room: Gender: M Physician Coder: [id number] : 1960 Requested By: JACINDA BIANCHI Order Number: [id number] Reading MD: Jairo Terrazas Measurements Intervals [place] Rate: 98 P: 61 MD: 194 QRS: 36 QRSD: 94 T: 69 QT: 347 QTc: 444 Interpretive Statements Sinus rhythm Borderline ST elevation, anterior leads Compared to ECG 11/05/2024 14:00:40 ST (T wave) deviation now present T-wave abnormality no longer present Possible ischemia no longer present Electronically Signed On 02-02-2025 20:06:06 RELIGIOUS EDUCATION TEACHER by Jairo Terrazas Please click the below link to view image of tracing.
--- NOTE | 2025-02-02 14:57 | ERN ---
General Chief Complaint: Mechanical Fall Stated Complaint: FALL Time Seen by MD: 14:05 History of Present Illness Initial Comments 65-year-old male history of neuropathy here for evaluation of fall. Patient states that he was at home by himself when he was feeling neuro out his normal neuropathy, sat on his butt and fell backwards hitting his head. He had nausea consciousness. He was awake the whole time however he was unable to get up for 8 hours until his provider came. He is currently complaining of occipital head pain as well as sacral pain. Allergies: Coded Allergies: codeine (Unverified Allergy, Unknown, 05/23/24) diphenhydramine (Unverified Allergy, Unknown, 01/09/22) Home Meds Active Scripts Meloxicam (Meloxicam) 15 Mg Tablet, 15 MG PO DAILY PRN for PAIN for 10 Days, #10 TAB Prov:TARIQ RENTERIA DO 10/17/24 Gabapentin (Gabapentin) 100 Mg Capsule, 1 CAP PO TID for 30 Days, #90 CAP 0 Refills Prov:TARIQ RENTERIA DO 10/17/24 Reported Medications Furosemide (Furosemide) 20 Mg Tablet, 1 TAB PO DAILY for 30 Days, #30 TAB 0 Refills 07/30/24 Metoprolol Tartrate (Metoprolol Tartrate) 25 Mg Tablet, 1 TAB PO BID for 30 Days, #60 TAB 0 Refills 07/30/24 Clopidogrel Bisulfate (Clopidogrel) 75 Mg Tablet, 75 MG PO AM, TAB 07/19/24 Isosorbide Mononitrate (Isosorbide Mononitrate ER) 60 Mg Tab.er.24h, 60 MG PO AM, TAB 07/19/24 Hydrocodone/Acetaminophen (Hydrocodon-Acetaminophn 10-325) 10 Mg-325 Mg Tablet, 1 EACH PO BID PRN for PAIN, TAB 05/23/24 Calcium Carbonate/Vitamin D3 (Calcium 600 mg-D3 20 Mcg Cplt) 600 Mg Calcium-20 Mcg (800 Unit) Tablet, 1 EACH PO DAILY, TAB 05/23/24 Ezetimibe (Ezetimibe) 10 Mg Tablet, 10 MG PO DAILY, TAB 05/23/24 Levothyroxine Sodium (Levothyroxine) 50 Mcg Capsule, 50 MCG PO ACBKFST, CAP 05/23/24 Pantoprazole Sodium (Pantoprazole Sodium) 40 Mg Tablet.dr, 40 MG PO DAILY, TAB 05/23/24 Atorvastatin Calcium (LIPITOR) 40 Mg Tablet, 40 MG PO DAILY, TAB 05/23/24 [place]-3 Fatty Acids/Fish Oil (Fish Oil 1,000 mg Softgel) 300 Mg-1,000 Mg Capsule, 1 EACH PO DAILY, CAP 04/10/16 Aspirin (ASPIRIN 81MG CHEW TAB) 81 Mg Tab.chew, 81 MG PO DAILY, TAB.CHEW 04/10/16 Past Medical History Past Medical History: CAD, High Cholesterol, Hypertension Medical History Other: HX OF [place] Past Surgical History: CABG Surgical History Other: CARDIAC STENTS Family History Family History: DM, HTN Social History Social History: Smokers, ETOH, Lives with family Neuro: (+) numbness, (+) weakness Physical Exam Physical Exam Dictation GENERAL APPEARANCE NAD, activity normal for age, well developed/ well nourished, no cyanosis, pallor, or diaphoresis. EYES lids/conjunctiva normal. EARS/NOSE/THROAT Mucous membranes moist, nares normal, lips/teeth normal uvula midline without oral pharyngeal erythema, exudate or swelling TMs normal bilate rally. No lymphangitis/lymphedema. HEAD/NECK normocephalic atraumatic, no facial trauma, neck is supple. RESPIRATORY respiratory effort normal, speaks in full sentences, no tripod position, no accessory muscle use. Lungs clear to auscultation without rhonchi, wheezes, rales CARDIAC Regular rate and rhythm, no edema. ABDOMINAL Soft, ND/NT. No evidence of fluid wave. No pulsatile masses on exam, rebound tenderness, Ureña sign or pain over Mcburney's point. MUSCLES/EXTREMITIES No abnormal range of motion, no swelling. Positive sacral pain on palpation. SKIN Warm, pink and dry. No rashes, dermatoses, petechiae or lesions. NEUROLOGICAL Speech is clear and appropriate. Normal level of consciousness. Gait and coordination are normal. 5/5 strength in all extremities. PSYCH Normal mood and affect. Judgement/competence is appropriate Results Laboratory and Microbiology Lab and Micro Result Laboratory Tests Test 02/02/25 14:45 White Blood Count 11.3 K/uL (4.8-10.8) H Red Blood Count 5.31 MIL/uL (4.50-6.20) Hemoglobin 14.1 g/dL (14.0-18.0) Hematocrit 43.0 % (42-54) Mean Corpuscular Volume 81.0 fL (79-99) Mean Corpuscular Hemoglobin 26.6 pg (27.0-33.0) L Mean Corpuscular Hemoglobin Concent 32.8 g/dL (32.0-36.0) Red Cell Distribution Width 15.1 % (11.0-15.5) Platelet Count 324 K/uL (130-400) Mean Platelet Volume 10.1 fL (7.5-10.5) Immature Granulocyte % (Auto) 2.7 % (0-1) H Neutrophils (%) (Auto) 78.5 % (40.0-77.0) H Lymphocytes (%) (Auto) 11.1 % (21.0-51.0) L Monocytes (%) (Auto) 5.6 % (3.0-13.0) Eosinophils (%) (Auto) 1.1 % (0.0-8.0) Basophils (%) (Auto) 1.0 % (0.0-5.0) Neutrophils # (Auto) 8.9 K/uL (1.8-7.7) H Lymphocytes # (Auto) 1.3 K/uL (1.0-4.8) Monocytes # (Auto) 0.6 K/uL (0.1-1.0) Eosinophils # (Auto) 0.13 K/uL (0.00-0.70) Basophils # (Auto) 0.11 K/uL (0.00-0.20) Absolute Immature Granulocyte (auto 0.31 K/uL (0-1) Nucleated Red Blood Cells 0.0 % (0.0-0.19) Sodium Level 135 mmol/L (136-145) L Potassium Level 3.9 mmol/L (3.5-5.1) Chloride Level 100 mmol/L (101-111) L Carbon Dioxide Level 26 mmol/L (21-32) Blood Urea Nitrogen 11 mg/dL (7-18) Creatinine 0.6 mg/dL (0.5-1.3) Glomerular Filtration Rate Calc 108 mL/min (>90) Random Glucose 111 mg/dL (70-105) H Lactic Acid Level 1.7 mmol/L (0.8-2.5) Total Calcium 8.9 mg/dL (8.5-10.1) Total Creatine Kinase 301 U/L (21-232) #H MDM 65-year-old male here for evaluation of a fall. We will get CT of the head because patient was on blood thinners. Likely discharge home. Patient well- appearing no acute distress GCS 15 alert and oriented x4. ED Course Orders Procedure Category Date Status Time Ct Head/Brain W/O CT 02/02/25 Resulted Contrast 14:07 Creatine Kinase, Total LAB 02/02/25 Complete 14:08 Lactic Acid LAB 02/02/25 Complete 14:08 Cbc With Differential LAB 02/02/25 Complete 14:08 Basic Metabolic Panel LAB 02/02/25 Complete 14:08 12 Lead Ekg Tracing- EKG 02/02/25 Complete Technical 14:08 0.9%Nacl 1000ml (Ns PHA 02/02/25 In Process 1000ml) 14:30 Sacrum/Coccyx 2+Vws RAD 02/02/25 Resulted 14:19 Ct Cervical Spine W/O CT 02/02/25 Resulted Contrast 14:21 Current Medications Medications (Trade) Dose Ordered Sig/Jasmyne Route PRN Reason Start Time Stop Time Status Last Admin Dose Admin Sodium Chloride 1,000 ml @ 0 mls/hr Q0M IV 02/02/25 14:30 03/04/25 14:29 Vital Signs Date Time Temp Pulse Resp B/P (MAP) Pulse Ox O2 Delivery O2 Flow Rate FiO2 02/02/25 14:05 97.9 20 20 149/69 95 Nasal Cannula 2.0 DX & DISP Disposition: Discharge Departure Impression: Primary Impression: Fall Additional Impressions: Sacral fracture, closed, Muscle spasm Condition: Stable Scripts Methocarbamol (Methocarbamol) 500 Mg Tablet 1 TAB PO TID for 10 Days, #30 TAB 0 Refills Prov: JACINDA BIANCHI MD 02/02/25 Referrals: ROBERTO SYED MD (PCP) JACINDA BIANCHI MD Feb 02, 2025 14:57
[2025-02-02 14:59] LABS: IMMATURE GRANULOCYTE ABSOLUTE 0.31 K/uL (0-1); NUCLEATED RED BLOOD CELLS 0.0 % (0.0-0.19); PLATELET COUNT (AUTO) 324 K/uL (130-400); RED BLOOD CELL COUNT(AUTO) 5.31 MIL/uL (4.50-6.20); RED CELL DISTRIBUTION WIDTH 15.1 % (11.0-15.5); WHITE BLOOD COUNT (AUTO) 11.3 K/uL (4.8-10.8)
[2025-02-02 15:12] LABS: CREATINE KINASE, TOTAL 301.0 U/L (21-232); CREATININE 0.6 mg/dL (0.5-1.3); GLOMERULAR FILTR. RATE CALC 108.0 mL/min (>90); GLUCOSE,RANDOM 111.0 mg/dL (70-105); SODIUM SERUM 135.0 mmol/L (136-145); UREA NITROGEN, BLOOD 11.0 mg/dL (7-18)
--- NOTE | 2025-02-02 15:50 | HMCIMG ---
EXAM: CR Sacrum and Coccyx, 3 View. CLINICAL HISTORY: fall COMPARISON: None provided. FINDINGS: BONES: Suspected nondisplaced fracture along the anterior cortex of the distal sacrum. Bony alignment is anatomic. SOFT TISSUES: The soft tissues are unremarkable. IMPRESSION: 1. Suspected nondisplaced fracture of the distal sacrum. /[place]
[2025-02-02] MEDS ORDERED: METH-811 PO (16:11)
[2025-02-02] MEDS: 0.9%NACL 1000ML 1,000 ML IV SCH (16:38)
[2025-02-02 17:15] VITALS: BP 172/92; PULSE 95; RESP 18; TEMP 97.8; O2SAT 94
== END 2025-02-02 17:12 | disposition home or self-care (01) ==
LOC: EDH 14:03
DX: S32.10XA Unspecified fracture of sacrum, initial encounter for closed fracture (principal); M62.830 Muscle spasm of back; I25.10 Atherosclerotic heart disease of native coronary artery without angina pectoris; I10 Essential (primary) hypertension; E78.00 Pure hypercholesterolemia, unspecified; F17.200 Nicotine dependence, unspecified, uncomplicated; I25.2 Old myocardial infarction; Z79.02 Long term (current) use of antithrombotics/antiplatelets; Z79.82 Long term (current) use of aspirin; Z79.899 Other long term (current) drug therapy; Z88.5 Allergy status to narcotic agent; Z95.1 Presence of aortocoronary bypass graft; Z95.5 Presence of coronary angioplasty implant and graft; W19.XXXA Unspecified fall, initial encounter; Y93.89 Activity, other specified; Y92.89 Other specified places as the place of occurrence of the external cause; Y99.8 Other external cause status
CPT/HCPCS: 36415; 70450; 72125; 72220; 80048; 82550; 83605; 85025; 93005; 96360; 99285; J7030